=== PATIENT | male | born 2000 | race Two or more races ===

== ENCOUNTER 2022-06-18 23:49 | Emergency (ER) | payer OTHER ==
[~2022-06-18] VITALS: Ht 170.2 cm; Wt 81.6 kg
[2022-06-19] MEDS ORDERED: KETO10TA2 PO (03:56)
== END 2022-06-19 04:12 ==
LOC: EMR PED 23:49 → ER 23:49
DX: S43.084A Other dislocation of right shoulder joint, initial encounter (principal); W19.XXXA Unspecified fall, initial encounter; Y93.89 Activity, other specified; Y92.89 Other specified places as the place of occurrence of the external cause; Y99.8 Other external cause status; G89.11 Acute pain due to trauma; M25.511 Pain in right shoulder